=== PATIENT | male | born 1960 | race Caucasian/White ===

== ENCOUNTER → 2018-12-24 | Outpatient (CLI) | payer MEDICARE ==
--- NOTE | 2018-12-24 12:38 | NM ---
EXAMINATION TYPE: NM stress cardiolite complete DATE OF EXAM: 12/24/2018 COMPARISON: NONE HISTORY: Chest pain TECHNIQUE: After the intravenous administration of 10.5 mCi Tc 99m Sestamibi - Rest images obtained 60 minutes post injection. The patient exercised using a MARCELINO protocol and 1 minute prior to peak exercise was injected with 25.3 mCi Tc 99m Sestamibi - Stress images obtained 35 minutes post injecti on. FINDINGS: Targeted heart rate was achieved during performance of the study. Review of stress and rest SPECT corky ges demonstrates some decreased anteroapical left ventricular uptake on stress as compared to rest im ages. Gated analysis shows normal wall motion with an estimated left ventricular ejection fraction o f 52 %. IMPRESSION: Stress-induced left jugular myocardial ischemia A Yellow level critical message alert has been initiated for Gamal Wright MD via the [facility] Critical Results System on 12/24/2018 12:35 PM. This message alert has been sent to Gamal Wright MD via the preferences provided by the clinician for the receipt of Radiology Critical Findings. Sweta gardiner ID [id number].
--- NOTE | 2018-12-25 12:24 | EST ---
EXERCISE STRESS AGE: 58 SEX: M HT: 5'8" WT: 184 PROTOCOL: Cardiolite Soto Stress Test STAGE: 4 DURATION OF EXERCISE: 10:30 HEART RATE REST: 60 BLOOD PRESSURE REST: 127/75 MAXIMUM HEART RATE ACHIEVED: 136 MAXIMUM BLOOD PRESSURE: 198/77 85% MPHR: 136 100% MPHR: 160 METS: 11.3 INDICATIONS: Chest pain. CLINICAL INFORMATION: Heart rate is 60, pressure is 127/75 mmHg. Baseline EKG showed sinus mechanism. The patient exercised on the treadmill according to Soto protocol for a total of 10 minutes and 30 seconds and achieved 11.3 minutes METS. Max heart rate was 136, which is about 85% of maximum predicted heart rate. Maximum pressure was 198/77 mmHg. Clinically, the patient did not have any symptoms of chest pain or discomfort and the EKG did not show any significant ST or T-wave abnormalities concerning for ischemia. CONCLUSION: 1. Excellent exercise tolerance. 2. Normal EKG in response to exercise. 3. Please follow up on the Cardiolite portion on separate report from Radiology Department. MMODL / IJN: [id number] /
== END | disposition home or self-care (01) ==
LOC: RADNMMAIN 06:58
PROVIDERS: ATTEND Internal Medicine
DX: I25.9 Chronic ischemic heart disease, unspecified (principal)
CPT/HCPCS: 93017; 78452; A9500

== ENCOUNTER 2019-01-05 09:13 | Day surgery (SDC) | payer MEDICARE ==
[2019-01-04 09:52] VITALS: BMI 26.5
[~2019-01-05 09:13] MED LIST: ALPRAZolam 0.25 MG TAB PO PRN; ALPRAZolam 0.5 MG TAB PO PRN; ASPIRIN 325 MG TAB PO STA; ATORVASTATIN 80 MG TAB PO STA; NITROGLYCERIN SL TABS 0.4 MG TAB SUBLINGUAL PRN; SODIUM CHLORIDE 0.9% 1,000 ML in EMPTY BAG 1 BAG IV ONE
[2019-01-05 09:40] VITALS: TEMP 98.1
[2019-01-05] MEDS ORDERED: LIDOCAINE 1% INJ 10MG/ML (20 ML MDV) ONE (10:46)
[2019-01-05] MEDS ORDERED: VERAPAMIL 2.5 MG/ML 2 ML AMP ONE (10:46)
[2019-01-05] MEDS ORDERED: fentaNYL (PF) 50 MCG/ML 2 ML AMP ONE (10:46)
[2019-01-05] MEDS ORDERED: HEPARIN SODIUM 1,000 UN/ML (10ML VL) ONE (10:46)
[2019-01-05] MEDS ORDERED: fentaNYL (PF) 50 MCG/ML 2 ML AMP IVP ONE (10:56)
[2019-01-05] MEDS ORDERED: LIDOCAINE 1% INJ 10MG/ML (20 ML MDV) SQ ONE (11:02)
[2019-01-05] MEDS ORDERED: VERAPAMIL SYRINGE (5 MG/10 ML) INTRAARTER ONE (11:04)
[2019-01-05] MEDS ORDERED: IOPAMIDOL-370 125ML BTL INJ ONE (11:18)
[2019-01-05] MEDS ORDERED: RX INFO: IV CONTRAST WAS GIVEN 1 EACH MISC MISCELLANE PRN (11:29)
[2019-01-05] MEDS ORDERED: SODIUM CHLORIDE 0.9% 1,000 ML IV SCH (11:30)
[2019-01-05] MEDS ORDERED: LITHIUM CARBONATE ER 450 MG TABLET.ER PO SCH (11:30)
[2019-01-05] MEDS ORDERED: MORPHINE SULFATE ER 30 MG TABLET PO STA (11:36)
--- NOTE | 2019-01-05 12:06 | CC ---
CARDIAC CATHETERIZATION REPORT Mr. Day is a 58-year-old male with a known history of hypertension who has been complaining of episode of chest discomfort, underwent a myocardial perfusion imaging that showed evidence of inducible ischemia. In view of that, recommendation was made regarding cardiac catheterization. The procedure as well as the risks and the complications were discussed with the patient who is in full understanding and agreement. PROCEDURE: Patient was brought to collaborating supervising physician in a fasting semi-sedated state after receiving fentanyl and Benadryl and achieving moderate conscious sedated state. Using Xylocaine anesthesia in the Seldinger technique, a 6-Ivorian sheath was introduced in the right radial artery. Selective right and left coronary angiography were performed using 5- Ivorian 3.5 bend right and left Dona catheter. Multiple views of the coronary artery including hemiaxial views obtained. Following that 5-Ivorian tight pigtail catheter was introduced left ventricle and a 30-degree PETERSON view of the left ventricle was obtained. Following that, catheter and sheath were removed. Hemostasis was obtained with deployment of a TR band. There was no immediate complication. Patient was returned to his room in stable condition. Of note, the patient received 5000 units of intravenous heparin as well as intra-arterial verapamil. FINDINGS: LEFT MAIN: This is a short size vessel bifurcating left circumflex, left anterior descending artery. Left main coronary artery has no evidence of high-grade stenosis. LEFT ANTERIOR DESCENDING ARTERY: This is a large-sized vessel reaching toward the apex with a wraparound apex segment. The left anterior descending artery and the diagonal branch in the mid segment has no evidence of high-grade stenosis. LEFT CIRCUMFLEX: This is a nondominant vessel giving rise to 2 obtuse marginal branches. The first one is small in caliber and very proximal. The second one is large in caliber. The left circumflex and its branches have no evidence of obstructive coronary artery disease. RIGHT CORONARY ARTERY: This is a dominant vessel moderate in caliber bifurcating distally PDA and posterolateral segment and branches. The right coronary artery as well as branches have no evidence of significant obstructive coronary artery disease. LEFT VENTRICULOGRAM: Left ventriculogram was performed in 30-degree PETERSON view and revealed normal left ventricular size and systolic function. Ejection fraction 60%. There was no significant mitral regurgitation. HEMODYNAMICS: There was no gradient across the aortic valve. The left ventricular end- diastolic pressure was 24 mmHg. CONCLUSION: 1. Normal coronary arteries. 2. Normal left ventricular size and systolic function. RECOMMENDATION: In view of finding anatomy, I recommend to continue medical therapy with aggressive coronary risk modifications that have been initiated. Those findings and recommendation were discussed with the patient and his family and are in full understanding and agreement. Duration of procedure is 19 minutes. NAYELI / RADHA: [id number] /
--- NOTE | 2019-01-05 12:15 | LTR ---
January 05, 2019 Re: Danie Day Dear Dr. Wright: I had the opportunity to perform cardiac catheterization on Mr. Day at [facility] on the 05 of January and a full copy of the procedure note will be forwarded to you. In brief, he was found to have no evidence of significant obstructive coronary artery disease with a preserved left ventricular size and systolic function. Based on those findings, I recommend to continue medical therapy with aggressive coronary risk modifications you have initiated. Thank you again for allowing me the opportunity to participate in his care. Please feel free to call for any questions. Sincerely yours, MD ELI ColemanL / KATIEN: [id number] /
[2019-01-05 13:02] VITALS: BP 130/64; PULSE 63; RESP 18
[2019-01-05] MEDS ORDERED: NON FORMULARY DRUG (Dextroamphetamine/Amphetamine [Adderall] 30 MG) PO SCH (21:00)
[2019-01-06] MEDS ORDERED: ASPIRIN 81 MG PO SCH (09:00)
[2019-01-06] MEDS ORDERED: MULTIVITAMINS, THERA 1 EACH TAB PO SCH (09:00)
[2019-01-06] MEDS ORDERED: LOSARTAN 50 MG PO SCH (09:00)
[2019-01-06] MEDS ORDERED: buPROPion XL 300 MG TAB.ER.24H PO SCH (09:00)
== END 2019-01-05 16:32 | disposition home or self-care (01) ==
LOC: CATHCVL 09:13
PROVIDERS: ATTEND Internal Medicine Interventional Cardiology
DX: R07.89 Other chest pain (principal); R94.39 Abnormal result of other cardiovascular function study; I10 Essential (primary) hypertension; E78.5 Hyperlipidemia, unspecified; F17.210 Nicotine dependence, cigarettes, uncomplicated; Z79.82 Long term (current) use of aspirin; Z79.899 Other long term (current) drug therapy
CPT/HCPCS: 93458; J2001; J3010; Q9967

== ENCOUNTER → 2019-02-05 | Outpatient (CLI) | payer MEDICARE ==
--- NOTE | 2019-02-08 15:33 | MR ---
EXAMINATION TYPE: MR Prostate wo/w con DATE OF EXAM: 02/05/2019 COMPARISON: None IMAGE QUALITY: Satisfactory. 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 Right lateral apex focal atrophy and acute prostatitis. Left lateral apex adenocarcinoma ([place] 3+3, 2 mm), left apex atrophy and acute prostatitis. TECHNIQUE: Examination was performed using a 3T MRI without an endorectal coil. Multiparametric imaging was perf ormed with T2 mutliplanar sequences, axial diffusion weighted imaging and dynamic contrast enhanced i maging, utilizing 7.5 mL intravenous Gadavist gadolinium contrast. FINDINGS: There is no clinically significant cancer identified. PROSTATE VOLUME: 3.6 x 3.6 x 4.2 cm LR Vol= cc Site 1: Assessment Category:3 Size: 2-3 mm mildly restricts diffusion and has a rounded contour . Location(s): high right far medial aspect of the posterior base near the urinary bladder on ADC 1500 image 276 and B1500 image 272 . This is only mildly ADC hypointense. NVB invasion: No EPE: No Site 2: Assessment Category: 2 Size: 4 mm, although linear in morphology and wedge-shaped. This is indistinct hypointense. Location(s): Left lateral apex NVB invasion: No EPE: No Seminal vesicle invasion: No Abnormal lymph nodes: No Bone metastases in inferior pelvis: No Wedge-shaped areas of T2 hypointensity are seen throughout the peripheral zone bilaterally in a scatt ered distribution most commonly related to scarring and sequela of prostatitis. Few well-circumscribe d nodules are seen in the central zone indicative of mild benign prostatic hypertrophy. There is also trabeculation of the urinary bladder that may relate to incomplete distention or chronic urinary camron dder are without obstruction. Large qbpsj-ia-tdor imaging demonstrates no concerning bone marrow repl acing process. Trace right hip joint effusion is seen. Mild right sacroiliac joint sclerosis and bone marrow edema. I signal in the left gluteal musculature is likely in the basis of strain are small te ar. No abnormal adenopathy in the pelvis. IMPRESSION: 1. A focus of clinically significant cancer is not identified. Within the left lateral apex in the si te of the previously biopsied adenocarcinoma there is only an indistinct wedge-shaped hypointense are a suggesting scarring or prostatitis (PI-RADS 2). Within the high medial aspect of the posterior righ t prostate base there is a punctate 2 to 3 mm focus of mildly ADC hypointensity (PI-RADS 3). Highest Assessment Category: 3 2. Multifocal wedge-shaped areas of hypodensity throughout the entirety of the peripheral zone withou t abnormal signal most commonly sequela of prior prostatitis or biopsy/scarring. 3. Mild degree benign prosthetic hyperplasia. False negative rates for MRI range from 5-20% depending on risk profile. Assessment Categories: 1 ? Very low (clinically significant cancer is highly unlikely to be present) 2 ? Low (clinically significant cancer is unlikely to be present) 3 ? Intermediate (the presence of clinically significant cancer is equivocal) 4 ? High (clinically significant cancer is likely to be present) 5 ? Very high (clinically significant cancer is highly likely to be present) Locations: PZ = peripheral zone; TZ = transition zone CZ=central zone; AFS = anterior fibromuscular stroma a=anterior half (i.e. PZa=anterior half of peripheral zone); pm= posterior medial (i.e PZpm) pl = postero-lateral (i.e. PZpl); p = posterior half (i.e. TZp) ; a = anterior half (i.e TZa or P Za) Other: N=no or no; E= equivocal; Y=yes EPE = extraprostatic extension NVB = neurovascular bundle NA = not applicable/not available
== END | disposition home or self-care (01) ==
LOC: RADMRIMAIN 14:08
PROVIDERS: ATTEND Urology
DX: C61 Malignant neoplasm of prostate (principal); R93.89 Abnormal findings on diagnostic imaging of other specified body structures; N40.0 Benign prostatic hyperplasia without lower urinary tract symptoms
CPT/HCPCS: 72197; A9585

== ENCOUNTER → 2019-10-04 | Outpatient (CLI) | payer MEDICARE, OTHER ==
--- NOTE | 2019-10-05 09:07 | XR ---
EXAMINATION TYPE: XR chest 2V DATE OF EXAM: 10/04/2019 COMPARISON: NONE TECHNIQUE: PA and lateral views submitted. HISTORY: Soreness of breath FINDINGS: Coarsened interstitium. There is basilar subsegmental consolidation at the left lung base. There is a prominent upper mediastinum with impression upon the trachea. Postsurgical change overlying the cerv ical spine. No pneumothorax. Heart size stable. IMPRESSION: 1. Basilar atelectasis or early infiltrate correlate for interstitial pneumonitis or venous congestio n. 2. Prominent upper mediastinum likely impression upon the trachea could be associated with an enlarge d thyroid. Adenopathy or mass not excluded.
== END | disposition home or self-care (01) ==
LOC: RADXRMAIN 16:33
PROVIDERS: ATTEND Internal Medicine
DX: R06.02 Shortness of breath (principal)
CPT/HCPCS: 71046

== ENCOUNTER 2019-11-09 15:26 | Observation (INO) | payer MEDICARE, OTHER ==
[2019-11-09] MEDS ORDERED: SODIUM CHLORIDE 0.9% 1,000 ML IV STA (16:42)
[2019-11-09] MEDS ORDERED: LORazepam 2 MG/ML INJ IV STA (16:42)
[2019-11-09 17:38] LABS: Basophils % (A) 0 %; Eosinophils # (A) 0.1 k/uL (0-0.7); Eosinophils % (A) 1 %; HCT 39.3 % (39.0-53.0); HGB 12.4 gm/dL (13.0-17.5); Lymphocytes # (A) 1.3 k/uL (1.0-4.8); Lymphocytes % (A) 12 %; MCHC 31.6 g/dL (31.0-37.0); Mean Platelet Volume 7.5; Monocytes # (A) 0.5 k/uL (0-1.0); Monocytes % (A) 4 %; Neutrophils # (A) 8.9 k/uL (1.3-7.7); Neutrophils % (A) 81 %; Platelet Count 276 k/uL (150-450); RBC 4.14 m/uL (4.30-5.90); RDW 12.9 % (11.5-15.5)
[2019-11-09 17:54] LABS: D-Dimer 0.56 mg/L FEU (<0.60); Partial Thromboplastin Time 23.5 sec (22.0-30.0); Prothrombin Time 10.4 sec (9.0-12.0)
--- NOTE | 2019-11-09 17:57 | ED ---
SOB HPI - General Chief Complaint: Shortness of Breath Stated Complaint: SOB Time Seen by Provider: 11/09/19 16:27 Source: patient, RN notes reviewed, old records reviewed Mode of arrival: ambulatory Limitations: no limitations - History of Present Illness Initial Comments: Danie is a 59-year-old male who presents emergency room today with increased shor tness of breath with sitting and laying down. He states that he feels he has to sit forward or moves around feel better with his breathing.. He reports that he does have a history of anxiety. Patient states that he has been having some chest pain with exertion going up and down the stairs the past few days.. Patient denies any recent fevers or chills. Denies worsening cough. He states it is not wear oxygen typically. He states he feels better once he has oxygen on.. - Related Data Home Medications Medication Instructions Recorded Confirmed Aspirin 81 mg PO DAILY 02/01/14 01/05/19 [place] Carbonate ER [Lithobid] 450 mg PO Q8H 02/01/14 01/05/19 buPROPion XL [Wellbutrin XL] 300 mg PO DAILY 02/01/14 01/05/19 Morphine Sulfate [Morphine Sulfate 30 mg PO TID 10/11/14 01/05/19 ER] Dextroamphetamine/Amphetamine 30 mg PO BID 01/04/19 01/05/19 [Adderall] Losartan(Unknown Dose) 50 mg PO DAILY 01/04/19 01/05/19 Multivitamins, Thera [Multivitamin 1 tab PO DAILY 01/04/19 01/05/19 (formulary)] Allergies Allergy/AdvReac Type Severity Reaction Status Date / Time venom-honey bee Allergy Unknown Swelling, Verified 11/09/19 16:22 [bee venom (honey bee)] [id number] Review of Systems ROS Statement: Those systems with pertinent positive or pertinent negative responses have been documented in the HPI. ROS Other: All systems not noted in ROS Statement are negative. Past Medical History Past Medical History: Cancer, Chest Pain / Angina, COPD, CVA/TIA, Hypertension, Musculoskeletal Disorder Additional Past Medical History / Comment(s): TIA 2010, CYST ON KIDNEY, BACK PAIN, SOB w/exertion, dx. w/prostate cancer stage 1-f/u w/Dr. Bassett History of Any Multi-Drug Resistant Organisms: None Reported Past Surgical History: Back Surgery, Orthopedic Surgery Additional Past Surgical History / Comment(s): RT KNEE ARTHROSCOPY ,CERVICAL FUSION, JAW RECONSTRUCTION A TEENAGER, PAIN CLINIC PROCEDURE 03/17/14 Past Anesthesia/Blood Transfusion Reactions: No Reported Reaction Past Psychological History: Anxiety, Bipolar, Depression Smoking Status: Former smoker Past Alcohol Use History: None Reported Past Drug Use History: None Reported - Past Family History Father Family Medical History: Cancer Mother Family Medical History: Cancer General Exam - General Exam Comments Initial Comments: Alert and oriented 59-year-old female. No significant distress. Limitations: no limitations General appearance: alert, in no apparent distress Head exam: Present: atraumatic, normocephalic, normal inspection Eye exam: Present: normal appearance, PERRL, EOMI. Absent: scleral icterus, conjunctival injection, periorbital swelling ENT exam: Present: normal exam, mucous membranes moist Neck exam: Present: normal inspection. Absent: tenderness, meningismus, lymphadenopathy Respiratory exam: Present: normal lung sounds bilaterally. Absent: respiratory distress, wheezes, rales, rhonchi, stridor Cardiovascular Exam: Present: regular rate, normal rhythm, normal heart sounds. Absent: systolic murmur, diastolic murmur, rubs, gallop, clicks GI/Abdominal exam: Present: soft, normal bowel sounds. Absent: distended, tenderness, guarding, rebound, rigid Extremities exam: Present: normal inspection, full ROM, normal capillary refill. Absent: tenderness, pedal edema, joint swelling, calf tenderness Back exam: Present: normal inspection Neurological exam: Present: alert, oriented X3, CN II-XII intact Psychiatric exam: Present: normal affect, normal mood Skin exam: Present: warm, dry, intact, normal color. Absent: rash Course Vital Signs 11/09/19 11/09/19 11/09/19 16:20 17:30 19:09 Temperature 98.6 F 98.2 F Pulse Rate 105 H 80 82 Respiratory 22 18 18 Rate Blood Pressure 165/91 130/89 137/76 O2 Sat by Pulse 99 97 100 Oximetry Medical Decision Making - Medical Decision Making [id number] male presents emergency times a day with dyspnea also was laying down or sitting up and states that he's had some chest pain with exertion over the past few days. Patient states is been generally fatigued as well. He was started on IV fluids labs obtained. Troponin was normal. EKG showed no significant ST elevation this time. Patient's CBC and CPR unremarkable. Patient chest x-ray is negative for acute process. On reevaluation he is resting comfortably in bed but states he was still concerned with the chest discomfort he had going up and down the stairs today. Patient case was discussed with Dr. Caldwell who will admit the Patient to doctors are at this time. Consult Cardiology. - Lab Data Result diagrams: 11/09/19 17:17 11/09/19 17:17 Lab Results 11/09/19 11/09/19 11/09/19 Range/Units 17:17 17:17 17:17 WBC 11.0 H (3.8-10.6) k/uL RBC 4.14 L (4.30-5.90) m/uL Hgb 12.4 L (13.0-17.5) gm/dL Hct 39.3 (39.0-53.0) % MCV 95.0 (80.0-100.0) fL MCH 30.0 (25.0-35.0) pg MCHC 31.6 (31.0-37.0) g/dL RDW 12.9 (11.5-15.5) % Plt Count 276 (150-450) k/uL Neutrophils % 81 % Lymphocytes % 12 % Monocytes % 4 % Eosinophils % 1 % Basophils % 0 % Neutrophils # 8.9 H (1.3-7.7) k/uL Lymphocytes # 1.3 (1.0-4.8) k/uL Monocytes # 0.5 (0-1.0) k/uL Eosinophils # 0.1 (0-0.7) k/uL Basophils # 0.0 (0-0.2) k/uL PT 10.4 (9.0-12.0) sec INR 1.0 (<1.2) APTT 23.5 (22.0-30.0) sec D-Dimer 0.56 (<0.60) mg/L FEU Sodium 140 (137-145) mmol/L Potassium 3.7 (3.5-5.1) mmol/L Chloride 109 H (98-107) mmol/L Carbon Dioxide 25 (22-30) mmol/L Anion Gap 6 mmol/L BUN 10 (9-20) mg/dL Creatinine 0.76 (0.66-1.25) mg/dL Est GFR (CKD-EPI)AfAm >90 (>60 ml/min/1.73 sqM) Est GFR (CKD-EPI)NonAf >90 (>60 ml/min/1.73 sqM) Glucose 126 H (74-99) mg/dL Plasma Lactic Acid Tuan (0.7-2.0) mmol/L Calcium 9.6 (8.4-10.2) mg/dL Magnesium 2.2 (1.6-2.3) mg/dL Total Bilirubin 0.3 (0.2-1.3) mg/dL AST 22 (17-59) U/L ALT 20 (4-49) U/L Alkaline Phosphatase 104 (38-126) U/L Troponin I (0.000-0.034) ng/mL NT-Pro-B Natriuret Pep pg/mL Total Protein 7.4 (6.3-8.2) g/dL Albumin 4.2 (3.5-5.0) g/dL 11/09/19 11/09/19 11/09/19 Range/Units 17:17 17:17 17:17 WBC (3.8-10.6) k/uL RBC (4.30-5.90) m/uL Hgb (13.0-17.5) gm/dL Hct (39.0-53.0) % MCV (80.0-100.0) fL MCH (25.0-35.0) pg MCHC (31.0-37.0) g/dL RDW (11.5-15.5) % Plt Count (150-450) k/uL Neutrophils % % Lymphocytes % % Monocytes % % Eosinophils % % Basophils % % Neutrophils # (1.3-7.7) k/uL Lymphocytes # (1.0-4.8) k/uL Monocytes # (0-1.0) k/uL Eosinophils # (0-0.7) k/uL Basophils # (0-0.2) k/uL PT (9.0-12.0) sec INR (<1.2) APTT (22.0-30.0) sec D-Dimer (<0.60) mg/L FEU Sodium (137-145) mmol/L Potassium (3.5-5.1) mmol/L Chloride (98-107) mmol/L Carbon Dioxide (22-30) mmol/L Anion Gap mmol/L BUN (9-20) mg/dL Creatinine (0.66-1.25) mg/dL Est GFR (CKD-EPI)AfAm (>60 ml/min/1.73 sqM) Est GFR (CKD-EPI)NonAf (>60 ml/min/1.73 sqM) Glucose (74-99) mg/dL Plasma Lactic Acid Tuan 1.6 (0.7-2.0) mmol/L Calcium (8.4-10.2) mg/dL Magnesium (1.6-2.3) mg/dL Total Bilirubin (0.2-1.3) mg/dL AST (17-59) U/L ALT (4-49) U/L Alkaline Phosphatase (38-126) U/L Troponin I <0.012 (0.000-0.034) ng/mL NT-Pro-B Natriuret Pep 73 pg/mL Total Protein (6.3-8.2) g/dL Albumin (3.5-5.0) g/dL 11/09/19 17:57 EKG performed shows normal sinus rhythm left axis deviation. Incomplete right left bundle branch block. Minimal stretcher for LVH. Prolonged QT. Intrauterine 98 bpm. NH intervals 190 ms. QRS duration is 114 ms. QT QTc is 384/490 ms. - Radiology Data Radiology results: report reviewed Normal Chest x-ray. Disposition Clinical Impression: Chest pain, Dyspnea on effort Disposition: ADMITTED IP TO THIS HOSP Condition: Good Additional Instructions: Please use medication as discussed. Please follow up with family doctor if symptoms have not improved over the next two days. Please return to the emergency room if your symptoms increase or worsen or for any other concerns. Is patient prescribed a controlled substance at d/c from ED?: No Referrals: Gamal Wright MD [Primary Care Provider] - 1-2 days Time of Disposition: 19:35
[2019-11-09 17:58] LABS: ALT 20 U/L (4-49); AST 22 U/L (17-59); African American GFR (CKD) >90 (>60 ml/min/1.73 sqM); Albumin 4.2 g/dL (3.5-5.0); Alkaline Phosphatase 104 U/L (38-126); Anion Gap 6 mmol/L; Blood Urea Nitrogen 10 mg/dL (9-20); Calcium 9.6 mg/dL (8.4-10.2); Carbon Dioxide 25 mmol/L (22-30); Chloride 109 mmol/L (98-107); Glucose 126 mg/dL (74-99); Magnesium 2.2 mg/dL (1.6-2.3); Non-African American GFR(CKD) >90 (>60 ml/min/1.73 sqM); Potassium 3.7 mmol/L (3.5-5.1); Sodium 140 mmol/L (137-145); Total Bilirubin 0.3 mg/dL (0.2-1.3); Total Protein 7.4 g/dL (6.3-8.2)
--- NOTE | 2019-11-09 18:51 | XR ---
EXAMINATION TYPE: XR chest 2V DATE OF EXAM: 11/09/2019 CLINICAL HISTORY: Difficulty breathing TECHNIQUE: Frontal and lateral views of the chest are obtained. COMPARISON: Chest radiograph 10/04/2019 FINDINGS: The cardiomediastinal silhouette is within normal limits for size. Pulmonary vasculature i s normal. Bibasilar atelectasis. There is no focal air space opacity, pleural effusion, or pneumothor ax seen. The osseous structures are intact. IMPRESSION: No acute cardiopulmonary process.
[2019-11-09] MEDS ORDERED: NITROGLYCERIN SL TABS 0.4 MG TAB SUBLINGUAL PRN (19:37)
[2019-11-09] MEDS ORDERED: MORPHINE SULFATE 4 MG/ML SYRINGE IV PRN (19:37)
[2019-11-10 07:37] LABS: Cholesterol 110 mg/dL (<200); HDL Cholesterol 52 mg/dL (40-60); LDL Cholesterol,Calculated 45 mg/dL (0-99); Triglycerides 63 mg/dL (<150)
[2019-11-10] MEDS ORDERED: ASPIRIN 325 MG TAB PO SCH (09:00)
[2019-11-10] MEDS ORDERED: LOSARTAN 50 MG TAB PO SCH (09:00)
--- NOTE | 2019-11-10 10:20 | P.CRDCN ---
History of Present Illness History of present illness: HISTORY OF PRESENTING ILLNESS This is a pleasant 59-year-old male past medical history significant for COPD, hypertension, bipolar disorder and chronic nicotine dependence. He follows in the office with Dr. Barros. We have been asked to see in consultation for chest pain. In December 2018 he underwent a nuclear perfusion scan revealing a reversible defect of the anterior/apical defect. He underwent a catheterization 12/2018 revealing normal coronary arteries. He states for the previous one week he has been experiencing shortness of breath at rest. He states that he sits down or lay down he becomes short of breath. When he stands up and starts moving his shortness of breath improves. He also has intermittent episodes of chest discomfort not related to exertion or activity. He denies dizziness palpitations, nausea, vomiting or diaphoresis. DIAGNOSTICS EKG reveals sinus mechanism, left bundle branch block and left axis deviation. Chest xray negative for acute cardiopulmonary process. Laboratory reviewed, WBC 11, hemoglobin 12.4, platelets 276, ESR 11, d-dimer 0.56, sodium 140, potassium 3.7, creatinine 0.76, magnesium 2.2, cardiac enzymes negative 3, C-reactive protein less than 5, LDL 45 and HDL 52. Current cardiac medications include losartan 50 mg daily and aspirin 81 mg daily. REVIEW OF SYSTEMS At the time of my exam: CONSTITUTIONAL: Denies fever or chills. CARDIOVASCULAR: Denies chest pain, shortness of breath, orthopnea, PND or palpitations. RESPIRATORY: Denies cough. GASTROINTESTINAL: Denies abdominal pain, diarrhea, constipation, nausea or vomiting. MUSCULOSKELETAL: Denies myalgias. NEUROLOGIC: Denies numbness, tingling or weakness. ENDOCRINE: Denies fatigue, weight change, polydipsia or polyurina. GENITOURINARY: Denies burning, hematuria or urgency with micturation. HEMATOLOGIC: Denies history of anemia or bleeding. PHYSICAL EXAMINATION Blood pressure 155/84 heart rate 60 afebrile and maintaining oxygen saturation on room air. CONSTITUTIONAL: No apparent distress. HEENT: Head is normocephalic. Pupils are equal, round. Sclerae anicteric. Mucous membranes of the mouth are moist. No JVD. No carotid bruit. CHEST EXAMINATION: Lungs are clear to auscultation. No chest wall tenderness is noted on palpation or with deep breathing. HEART EXAMINATION: Regular rate and rhythm. S1, S2 heard. No murmurs, gallops or rub. ABDOMEN: Soft, nontender. Positive bowel sounds. EXTREMITIES: 2+ peripheral pulses, no lower extremity edema and no calf tenderness. NEUROLOGIC EXAMINATION: Patient is awake, alert and oriented x3. ASSESSMENT Chest pain, atypical. An acute coronary event has been ruled out. Recent cardiac catheterization reveals normal coronary arteries. Hypertension COPD Former nicotine PLAN An acute coronary event has been ruled out. Recent normal catheterization. Increase activity and ambulation. Check room air saturations. Clinically euvolemic. Repeat 2D echocardiogram and doppler study to assess cardiac structure and function. Stable from a cardiac perspective, he can be discharged home. Thank you kindly for this consultation. Nurse Practitioner note has been reviewed, I agree with a documented findings and plan of care. Patient was seen and examined. Past Medical History Past Medical History: Cancer, Chest Pain / Angina, COPD, CVA/TIA, Hypertension, Musculoskeletal Disorder Additional Past Medical History / Comment(s): TIA 2010, CYST ON KIDNEY, BACK PAIN, SOB w/exertion, dx. w/prostate cancer stage 1-f/u w/Dr. Bassett History of Any Multi-Drug Resistant Organisms: None Reported Past Surgical History: Back Surgery, Orthopedic Surgery Additional Past Surgical History / Comment(s): RT KNEE ARTHROSCOPY ,CERVICAL FUSION, JAW RECONSTRUCTION A TEENAGER, PAIN CLINIC PROCEDURE 03/17/14 Past Anesthesia/Blood Transfusion Reactions: No Reported Reaction Past Psychological History: Anxiety, Bipolar, Depression Smoking Status: Former smoker Past Alcohol Use History: None Reported Additional Past Alcohol Use History / Comment(s): QUIT 2008 WAS 1/2 PPD, using e-cig. currently Past Drug Use History: None Reported Additional Drug Use History / Comment(s): STATES HX OF LSD A TEENAGER. - Past Family History Father Family Medical History: Cancer Additional Family Medical History / Comment(s): lung CA Mother Family Medical History: Cancer Medications and Allergies Home Medications Medication Instructions Recorded Confirmed Type Aspirin 81 mg PO DAILY 02/01/14 11/09/19 History [place] Carbonate ER [Lithobid] 450 mg PO QAM 02/01/14 11/09/19 History buPROPion XL [Wellbutrin XL] 300 mg PO DAILY 02/01/14 11/09/19 History Morphine Sulfate [Morphine Sulfate 30 mg PO TID 10/11/14 11/09/19 History ER] Dextroamphetamine/Amphetamine 30 mg PO BID 01/04/19 11/09/19 History [Adderall] Multivitamins, Thera [Multivitamin 1 tab PO DAILY 01/04/19 11/09/19 History (formulary)] Albuterol Sulfate [Ventolin HFA] 2 puff INHALATION RT-Q4H PRN 11/09/19 11/09/19 History Cholecalciferol [Vitamin D3 (25 2,000 unit PO DAILY 11/09/19 11/09/19 History Mcg = 1000 Iu)] [place] Carbonate ER [Lithobid] 900 mg PO HS 11/09/19 11/09/19 History Losartan Potassium 50 mg PO DAILY 11/09/19 11/09/19 History OLANZapine [ZyPREXA] 10 mg PO HS 11/09/19 11/09/19 History Tamsulosin HCl [Flomax] 0.4 mg PO HS 11/09/19 11/09/19 History busPIRone HCl [Buspar] 10 mg PO BID 11/09/19 11/09/19 History Allergies Allergy/AdvReac Type Severity Reaction Status Date / Time venom-honey bee Allergy Unknown Swelling, Verified 11/09/19 20:36 [bee venom (honey bee)] Vijazsd-zjngqjhngseciq-rjp Physical Exam Vitals: Vital Signs Temp Pulse Pulse Resp BP BP Pulse Ox 11/10/19 06:27 97.5 F L 59 L 18 146/81 97 11/09/19 20:45 98.1 F 74 18 156/88 100 11/09/19 19:09 98.2 F 82 18 137/76 100 11/09/19 17:30 80 18 130/89 97 11/09/19 16:20 98.6 F 105 H 22 165/91 99 Intake and Output 11/09/19 11/10/19 11/10/19 22:59 06:59 14:59 Other: Voiding Method Toilet Toilet # Voids 1 2 Weight 83.461 kg Results 11/09/19 17:17 11/09/19 17:17 Cardiac Enzymes 11/09/19 11/09/19 11/09/19 Range/Units 17:17 17:17 20:21 AST 22 (17-59) U/L Troponin I <0.012 <0.012 (0.000-0.034) ng/mL 11/09/19 Range/Units 23:08 AST (17-59) U/L Troponin I <0.012 (0.000-0.034) ng/mL Coagulation 11/09/19 Range/Units 17:17 PT 10.4 (9.0-12.0) sec APTT 23.5 (22.0-30.0) sec Lipids 11/10/19 Range/Units 06:40 Triglycerides 63 (<150) mg/dL Cholesterol 110 (<200) mg/dL HDL Cholesterol 52 (40-60) mg/dL CBC 11/09/19 Range/Units 17:17 WBC 11.0 H (3.8-10.6) k/uL RBC 4.14 L (4.30-5.90) m/uL Hgb 12.4 L (13.0-17.5) gm/dL Hct 39.3 (39.0-53.0) % Plt Count 276 (150-450) k/uL Comprehensive Metabolic Panel 11/09/19 Range/Units 17:17 Sodium 140 (137-145) mmol/L Potassium 3.7 (3.5-5.1) mmol/L Chloride 109 H (98-107) mmol/L Carbon Dioxide 25 (22-30) mmol/L BUN 10 (9-20) mg/dL Creatinine 0.76 (0.66-1.25) mg/dL Glucose 126 H (74-99) mg/dL Calcium 9.6 (8.4-10.2) mg/dL AST 22 (17-59) U/L ALT 20 (4-49) U/L Alkaline Phosphatase 104 (38-126) U/L Total Protein 7.4 (6.3-8.2) g/dL Albumin 4.2 (3.5-5.0) g/dL Current Medications Generic Name Dose Route Start Last Admin Trade Name Freq PRN Reason Stop Dose Admin Morphine Sulfate 4 mg 11/09/19 19:37 Morphine Sulfate (Inj) IV Q5M PRN Chest Pain Nitroglycerin 0.4 mg 11/09/19 19:37 Nitrostat SUBLINGUAL Q5M PRN Chest Pain Intake and Output 11/09/19 11/10/19 11/10/19 22:59 06:59 14:59 Other: Voiding Method Toilet Toilet # Voids 1 2 Weight 83.461 kg 11/09/19 17:17 11/09/19 17:17
--- NOTE | 2019-11-10 12:06 | ECHOF ---
Referral Reason:sob MEASUREMENTS -------- HEIGHT: 172.7 cm WEIGHT: 83.5 kg BP: 146/81 RVIDd: 3.6 cm (< 3.3) IVSd: 1.5 cm (0.6 - 1.1) LVIDd: 5.3 cm (3.9 - 5.3) LVPWd: 1.2 cm (0.6 - 1.1) IVSs: 1.7 cm LVIDs: 3.7 cm LVPWs: 1.7 cm LAESV Index (A-L): 56.40 ml/m Ao Diam: 3.2 cm (2.0 - 3.7) AV Cusp: 2.1 cm (1.5 - 2.6) MV EXCURSION: 19.783 mm (> 18.000) MV EF SLOPE: 140 mm/s (70 - 150) EPSS: 1.0 cm MV E Gaurav: 0.81 m/s MV DecT: 237 ms MV A Gaurav: 1.01 m/s MV E/A Ratio: 0.80 RAP: 5.00 mmHg RVSP: 24.94 mmHg FINDINGS -------- This was a technically adequate study. The left ventricular size is normal. There is moderate concentric left ventricular hypertrophy. O verall left ventricular systolic function is normal with, an EF between 55 - 60 %. The diastolic fi lling pattern is normal for the age of the patient 12.11. The right ventricle is mildly enlarged. LA is severely dilated >40 ml/m2 The right atrium is mildly enlarged. Interatrial and interventricular septum intact. There is no evidence of aortic regurgitation. There is no evidence of aortic stenosis. Dixx-ld-yxwxtbfw mitral regurgitation is present. Mild tricuspid regurgitation present. There is no evidence of pulmonary hypertension. The right v entricular systolic pressure, as measured by Doppler, is 24.94mmHg. There is no pulmonic regurgitation present. The aortic root size is normal. IVC Not well visulized. There is no pericardial effusion. CONCLUSIONS -------- 1. The left ventricular size is normal. 2. There is moderate concentric left ventricular hypertrophy. 3. Overall left ventricular systolic function is normal with, an EF between 55 - 60 %. 4. The diastolic filling pattern is normal for the age of the patient 12.11 5. The right ventricle is mildly enlarged. 6. LA is severely dilated >40 ml/m2 7. The right atrium is mildly enlarged. 8. Wjjj-dg-ofjsungx mitral regurgitation is present. 9. Mild tricuspid regurgitation present. TESTING COORDINATOR: Miriam Woody RDCS
--- NOTE | 2019-11-10 15:51 | P.HPIM ---
History of Present Illness H&P Date: 11/10/19 Danie Caro is a 59-year-old male who presented to [facility] with a chief complaint of chest pain. Patient describes a pressure sensation in the middle of his chest, patient underwent cardiac catheterization in December 2018 which revealed normal coronary arteries, first EKG and first troponin were negative patient is admitted for observation cardiology consultation was reque tamika. Patient has a known history of hypertension, hyperlipidemia, COPD, and chronic back pain requiring narcotic use for pain management. On review of systems at this time patient is alert and oriented 3 in no apparent distress, there is no fever or chills no headache or dizziness no chest pain at this time no shortness of breath no cough no nausea or vomiting no abdominal pain no diarrhea no burning with urination no frequency or urgency no hematuria Past Medical History Past Medical History: Cancer, Chest Pain / Angina, COPD, CVA/TIA, Hypertension, Musculoskeletal Disorder Additional Past Medical History / Comment(s): TIA 2010, CYST ON KIDNEY, BACK PAIN, SOB w/exertion, dx. w/prostate cancer stage 1-f/u w/Dr. Bassett History of Any Multi-Drug Resistant Organisms: None Reported Past Surgical History: Back Surgery, Orthopedic Surgery Additional Past Surgical History / Comment(s): RT KNEE ARTHROSCOPY ,CERVICAL FUSION, JAW RECONSTRUCTION A TEENAGER, PAIN CLINIC PROCEDURE 03/17/14 Past Anesthesia/Blood Transfusion Reactions: No Reported Reaction Past Psychological History: Anxiety, Bipolar, Depression Smoking Status: Former smoker Past Alcohol Use History: None Reported Additional Past Alcohol Use History / Comment(s): QUIT 2008 WAS 1/2 PPD, using e-cig. currently Past Drug Use History: None Reported Additional Drug Use History / Comment(s): STATES HX OF LSD A TEENAGER. - Past Family History Father Family Medical History: Cancer Additional Family Medical History / Comment(s): lung CA Mother Family Medical History: Cancer Medications and Allergies Home Medications Medication Instructions Recorded Confirmed Type Aspirin 81 mg PO DAILY 02/01/14 11/09/19 History [place] Carbonate ER [Lithobid] 450 mg PO QAM 02/01/14 11/09/19 History buPROPion XL [Wellbutrin XL] 300 mg PO DAILY 02/01/14 11/09/19 History Morphine Sulfate [Morphine Sulfate 30 mg PO TID 10/11/14 11/09/19 History ER] Dextroamphetamine/Amphetamine 30 mg PO BID 01/04/19 11/09/19 History [Adderall] Multivitamins, Thera [Multivitamin 1 tab PO DAILY 01/04/19 11/09/19 History (formulary)] Albuterol Sulfate [Ventolin HFA] 2 puff INHALATION RT-Q4H PRN 11/09/19 11/09/19 History Cholecalciferol [Vitamin D3 (25 2,000 unit PO DAILY 11/09/19 11/09/19 History Mcg = 1000 Iu)] [place] Carbonate ER [Lithobid] 900 mg PO HS 11/09/19 11/09/19 History Losartan Potassium 50 mg PO DAILY 11/09/19 11/09/19 History OLANZapine [ZyPREXA] 10 mg PO HS 11/09/19 11/09/19 History Tamsulosin HCl [Flomax] 0.4 mg PO HS 11/09/19 11/09/19 History busPIRone HCl [Buspar] 10 mg PO BID 11/09/19 11/09/19 History Allergies Allergy/AdvReac Type Severity Reaction Status Date / Time venom-honey bee Allergy Unknown Swelling, Verified 11/09/19 20:36 [bee venom (honey bee)] Kpkgfpy-ctueahfmxoskii-rlx Physical Exam Vitals: Vital Signs Temp Pulse Pulse Resp BP BP Pulse Ox 11/10/19 08:50 97.8 F 60 16 155/84 99 11/10/19 06:27 97.5 F L 59 L 18 146/81 97 11/09/19 20:45 98.1 F 74 18 156/88 100 11/09/19 19:09 98.2 F 82 18 137/76 100 11/09/19 17:30 80 18 130/89 97 11/09/19 16:20 98.6 F 105 H 22 165/91 99 Intake and Output 11/09/19 11/10/19 11/10/19 22:59 06:59 14:59 Other: Voiding Method Toilet Toilet # Voids 1 2 Weight 83.461 kg In general patient is alert and oriented 3 in no apparent distress HEENT head normocephalic and atraumatic Neck is supple no JVD no goiter no lymphadenopathy Chest exam reveals a few scattered rhonchi no wheezing Cardiac exam reveals regular heart sounds no gallops no murmurs Abdomen is soft nontender no organomegaly Extremity exam reveals no edema no cyanosis or clubbing Results CBC & Chem 7: 11/09/19 17:17 11/09/19 17:17 Labs: Abnormal Lab Results - Last 24 Hours (Table) 11/09/19 11/09/19 Range/Units 17:17 17:17 WBC 11.0 H (3.8-10.6) k/uL RBC 4.14 L (4.30-5.90) m/uL Hgb 12.4 L (13.0-17.5) gm/dL Neutrophils # 8.9 H (1.3-7.7) k/uL Chloride 109 H (98-107) mmol/L Glucose 126 H (74-99) mg/dL Thrombosis Risk Factor Assmnt - Choose All That Apply Any of the Below Risk Factors Present?: Yes Other Risk Factors: Yes Each Risk Factor Represents 2 Points: Age 61-74 years Thrombosis Risk Factor Assessment Total Risk Factor Score: 2 Thrombosis Risk Factor Assessment Level: Low Risk Assessment and Plan Plan: 1. Episode of chest pain, atypical, EKG and cardiac enzymes are negative, patient had recent cardiac catheterization that revealed normal coronary arteries , he will be evaluated by cardiology today. 2. Underlying history of hypertension 3. Underlying history of COPD 4. Chronic back pain requiring narcotics for pain management At this time patient is admitted to telemetry floor serial EKGs and cardiac enzymes are ordered Cardiology consultation was requested will follow closely
--- NOTE | 2019-11-10 15:54 | P.DS ---
Providers Date of admission: 11/09/19 19:28 Expected date of discharge: 11/10/19 Attending physician: Gamal Wright Consults: 11/09/19 19:37 Consult Physician ONCE Consulting Provider: Kaden Bravo Consult Reason/Comments: chest pain Do you want consulting provider notified?: Yes Primary care physician: Gamal Wright [facility] Course: Diagnosis on discharge: 1. Episode of chest pain, atypical, EKG and cardiac enzymes are negative, patient had recent cardiac catheterization that revealed normal coronary arteries , he will be evaluated by cardiology today. 2. Underlying history of hypertension 3. Underlying history of COPD 4. Chronic back pain requiring narcotics for pain management Hospital course: Danie Caro is a 59-year-old male who presented to [facility] with a chief complaint of chest pain. Patient describes a pressure sensation in the middle of his chest, patient underwent cardiac catheterization in December 2018 which revealed normal coronary arteries, first EKG and first troponin were negative patient is admitted for observation cardiology consultation was requested. Patient has a known history of hypertension, hyperlipidemia, COPD, and chronic back pain requiring narcotic use for pain management. On review of systems at this time patient is alert and oriented 3 in no apparent distress, there is no fever or chills no headache or dizziness no chest pain at this time no shortness of breath no cough no nausea or vomiting no abdominal pain no diarrhea no burning with urination no frequency or urgency no hematuria. On 11/10/2019 patient was seen and examined on the medical floor he is alert and oriented 3 in no apparent distress he was seen and evaluated by cardiology and was cleared for discharge serial troponin level were negative, patient underwent an echocardiogram which revealed normal left ventricular function was ejection fraction of 55-60% patient was chest pain-free during this admission he will be followed in our office and by cardiology as outpatient for further evaluation and treatment Patient Condition at Discharge: Good Plan - Discharge Summary New Discharge Prescriptions: Continue [place] Carbonate ER [Lithobid] 450 mg PO QAM buPROPion XL [Wellbutrin XL] 300 mg PO DAILY Aspirin 81 mg PO DAILY Morphine Sulfate [Morphine Sulfate ER] 30 mg PO TID Multivitamins, Thera [Multivitamin (formulary)] 1 tab PO DAILY Dextroamphetamine/Amphetamine [Adderall] 30 mg PO BID [place] Carbonate ER [Lithobid] 900 mg PO HS busPIRone HCl [Buspar] 10 mg PO BID OLANZapine [ZyPREXA] 10 mg PO HS Losartan Potassium 50 mg PO DAILY Albuterol Sulfate [Ventolin HFA] 2 puff INHALATION RT-Q4H PRN PRN Reason: Shortness Of Breath Tamsulosin HCl [Flomax] 0.4 mg PO HS Cholecalciferol [Vitamin D3 (25 Mcg = 1000 Iu)] 2,000 unit PO DAILY Discharge Medication List Aspirin 81 mg PO DAILY 02/01/14 [History] [place] Carbonate ER [Lithobid] 450 mg PO QAM 02/01/14 [History] buPROPion XL [Wellbutrin XL] 300 mg PO DAILY 02/01/14 [History] Morphine Sulfate [Morphine Sulfate ER] 30 mg PO TID 10/11/14 [History] Dextroamphetamine/Amphetamine [Adderall] 30 mg PO BID 01/04/19 [History] Multivitamins, Thera [Multivitamin (formulary)] 1 tab PO DAILY 01/04/19 [History] Albuterol Sulfate [Ventolin HFA] 2 puff INHALATION RT-Q4H PRN 11/09/19 [History] Cholecalciferol [Vitamin D3 (25 Mcg = 1000 Iu)] 2,000 unit PO DAILY 11/09/19 [History] [place] Carbonate ER [Lithobid] 900 mg PO HS 11/09/19 [History] Losartan Potassium 50 mg PO DAILY 11/09/19 [History] OLANZapine [ZyPREXA] 10 mg PO HS 11/09/19 [History] Tamsulosin HCl [Flomax] 0.4 mg PO HS 11/09/19 [History] busPIRone HCl [Buspar] 10 mg PO BID 11/09/19 [History] Follow up Appointment(s)/Referral(s): Gamal Wright MD [Primary Care Provider] - 1-2 days Activity/Diet/Wound Care/Special Instructions: Please use medication as discussed. Please follow up with family doctor if symptoms have not improved over the next two days. Please return to the emergency room if your symptoms increase or worsen or for any other concerns.
[2019-11-10 19:20] VITALS: BP 161/80; PULSE 79; RESP 18; TEMP 98.2
== END 2019-11-10 17:45 ==
LOC: EC 15:26 → 3NCARDOBS 19:28
PROVIDERS: ADMIT Internal Medicine; ATTEND Internal Medicine
DX: R07.89 Other chest pain (principal); J44.9 Chronic obstructive pulmonary disease, unspecified; F41.9 Anxiety disorder, unspecified; I10 Essential (primary) hypertension; E78.5 Hyperlipidemia, unspecified; N28.1 Cyst of kidney, acquired; F31.9 Bipolar disorder, unspecified; I44.7 Left bundle-branch block, unspecified; F17.290 Nicotine dependence, other tobacco product, uncomplicated; G89.29 Other chronic pain; M54.9 Dorsalgia, unspecified; Z20.818 Contact with and (suspected) exposure to other bacterial communicable diseases; Z79.82 Long term (current) use of aspirin; Z79.891 Long term (current) use of opiate analgesic; Z79.899 Other long term (current) drug therapy; Z91.030 Bee allergy status; Z86.73 Personal history of transient ischemic attack (TIA), and cerebral infarction without residual deficits; Z85.46 Personal history of malignant neoplasm of prostate; Z98.1 Arthrodesis status; Z98.890 Other specified postprocedural states; Z80.1 Family history of malignant neoplasm of trachea, bronchus and lung
CPT/HCPCS: 93005 ×2; 96361; 96374; 99285; 36415; 93306; 85379; 83880; 80061; 80053; 85652; 83605; 83735; 84484; 85025; 85610; 85730; 86140; 87040; 71046; G0378 ×2; U0003; J2060

== ENCOUNTER → 2020-08-07 | Outpatient (CLI) | payer MEDICARE, OTHER ==
--- NOTE | 2020-08-07 14:44 | XR ---
EXAMINATION TYPE: XR chest 2V DATE OF EXAM: 08/07/2020 COMPARISON: 11/09/2019 HISTORY: Shortness of breath TECHNIQUE: Frontal and lateral views of the chest are obtained. FINDINGS: Scattered senescent parenchymal changes noted. Hyperinflation compatible with COPD. No evidence for infiltrate. No evidence for atelectasis. Heart size is stable. Paratracheal soft tissue prominence noted unchanged from previous. No evidence for hilar prominence. Degenerative changes dorsal spine. IMPRESSION: 1. No evidence for acute pulmonary disease.
== END | disposition home or self-care (01) ==
LOC: RADXRMAIN 14:14
PROVIDERS: ATTEND Internal Medicine
DX: R06.02 Shortness of breath (principal)
CPT/HCPCS: 71046

== ENCOUNTER → 2022-10-01 | Outpatient (CLI) | payer MEDICARE, OTHER ==
--- NOTE | 2022-10-01 11:52 | XR ---
EXAMINATION TYPE: XR spine complete AP and Lat DATE OF EXAM: 10/01/2022 COMPARISON: 09/27/1999 HISTORY: Pain TECHNIQUE: AP and lateral views of the cervical, thoracic and lumbar spines FINDINGS: Cervical spine: There is severe multilevel degenerative disc disease involving levels 3 through C7. T here is an anterior fixation plate and level C5-C6. Less than 1 mm separation plane from the anterior margin of the C5 segment. Slight anterolisthesis of C2 on C3. Multilevel facet arthropathy. Thoracic spine: There is a scoliotic curvature of the thoracic spine with multilevel moderate degener ative disc disease and hypertrophic spurring. Mild wedged deformity thoracolumbar junction appears ch ronic. Lumbar spine: There is a bilateral spondylolysis of L5 with grade 1 spondylolisthesis. Severe degener ative disc disease at levels T12-L3 with moderate changes at L3-4 and L4-5. Multilevel facet arthropa thy. There is irregularity of the endplate of L1-L2. IMPRESSION: 1. Severe multilevel cervical spine degenerative disc disease. There is a 1 mm separation of C5 relat agueda to the anterior fixation plate. Additionally correlated clinically. 2. Multilevel moderate degenerative disc disease and scoliosis thoracic spine. 3. Multilevel severe degenerative disc disease lumbar spine with irregular margins of the endplates o f L1 and L2. This could be discogenic. If there is concern for discitis correlate with MRI with contr ast. Report called to referring clinician at 11:34 AM 10/01/2022. 4. Bilateral spondylolysis L5 with grade 1 spondylolisthesis.
== END | disposition home or self-care (01) ==
LOC: RADXRMAIN 10:37
PROVIDERS: ATTEND Nurse Practitioner
DX: M51.36 Other intervertebral disc degeneration, lumbar region (principal); M43.16 Spondylolisthesis, lumbar region; M47.816 Spondylosis without myelopathy or radiculopathy, lumbar region; M50.121 Cervical disc disorder at C4-C5 level with radiculopathy
CPT/HCPCS: 72082

== ENCOUNTER → 2023-04-17 | Outpatient (CLI) | payer MEDICARE, OTHER ==
--- NOTE | 2023-04-19 11:13 | NM ---
EXAMINATION TYPE: NM DatScan Brain SPECT DATE OF EXAM: 04/17/2023 COMPARISON: NONE CLINICAL INDICATION: Male, 62 years old with history of G25.0 ESSENTIAL TREMOR; TECHNIQUE: 10 drops of Lugol's solution was administered 1 hour prior to injection as a thyroid bloc suma agent. After the administration of 4.45 mCi I-123 Ioflupane DaTscan. Images obtained 3 hours p ost injection. SPECT images of the brain were acquired with axial and coronal reconstructions. FINDINGS: Symmetric, normal uptake in the bilateral corpora striata. No significant increase in background acti vity. IMPRESSION: No abnormal decreased striatal activity. Findings are against a diagnosis of Parkinson's disease or a Parkinsonian syndrome. It can be seen with essential tremor.
== END | disposition home or self-care (01) ==
LOC: RADNMMAIN 10:53
PROVIDERS: ATTEND Psychiatry & Neurology Neurology
DX: G25.0 Essential tremor (principal)
CPT/HCPCS: 78803; A9584

== ENCOUNTER → 2024-01-16 | Outpatient (CLI) | payer MEDICARE, OTHER ==
--- NOTE | 2024-01-16 19:22 | US ---
EXAMINATION TYPE: US venous doppler duplex LE RT DATE OF EXAM: 01/16/2024 10:11 AM COMPARISON: NONE CLINICAL INDICATION: Male, 63 years old with history of M79.89 OTHER SPECIFIED SOFT TISSUE DISORDERS; Pt had machado's cyst drained on rt side and now is having swelling in knee. No hx of DVT. Not on bloo d thinners SIDE PERFORMED: Right TECHNIQUE: The lower extremity deep venous system is examined utilizing real time linear array sonog krystle with graded compression, color doppler sonography, and spectral doppler. VESSELS IMAGED: Common Femoral Vein Deep Femoral Vein Greater Saphenous Vein * Femoral Vein Popliteal Vein Small Saphenous Vein * Proximal Calf Veins (* superficial vessels) Right Leg: No evidence for DVT. No fluid collection see in pop fossa IMPRESSION: 1. Right lower extremity ultrasound negative for deep venous thrombosis [facility], , 01/16/2024 7:19 PM
== END | disposition home or self-care (01) ==
LOC: RADUSWWP 09:50
PROVIDERS: ATTEND Psychologist Clinical
DX: M79.89 Other specified soft tissue disorders